=== PATIENT | female | born 1960 | race Caucasian/White ===

== ENCOUNTER 2023-01-14 14:18 | Emergency (ER) | payer BC, SELFPAY ==
[2023-01-14 14:23] VITALS: BP 130/80; PULSE 78; RESP 18; TEMP 36.6; O2SAT 98; BMI 38.7
--- NOTE | 2023-01-14 15:00 | XR_ITS ---
The [address] [address] Patient Name: KEVIN SANDY MRN: [id number] date: 1960 Sex: F Assigned Patient Location: ER Current Patient Location: ER Accession/Order Number: [id number] Exam Date: 01/14/2023 15:45 Report Date: 01/14/2023 16:18 At the request of: STACEY WEISS Procedure: XR lumbar spine min 4V XR lumbar spine min 4V, 01/14/2023 3:45 PM EDT, [facility]001 INDICATION: pain s/p fall COMPARISON: None TECHNIQUE: 4 images are submitted, including bilateral oblique views. FINDINGS: There is mild levocurvature. There is slight anterolisthesis of L3 on L4 and L4 on L5. There is a mild compression fracture along the anterior aspect of the superior endplate of L1 which appears recent. There is no evidence of retropulsion or canal stenosis. There is moderate disc space narrowing and cortical sclerosis and endplate osteophyte formation at T11-T12. The oblique views demonstrate no evidence of spondylolysis. There is sclerosis of facet joints at L3-L4 and L4-L5. There is moderate desiccation without evidence of aneurysm. XR/XR lumbar spine min 4V IMPRESSION: There is a mild anterior compression fracture of the superior endplate of L1 which appears recent. No significant retropulsion or canal stenosis is seen. Multilevel degenerative changes. Electronically authenticated by: ROYAL HENRY Date: 01/14/2023 16:18
--- NOTE | 2023-01-14 15:03 | ED_ITS ---
Documented by User: BERNARDA Ortiz 01/14/23 16:41 HPI - Back Pain/Injury General Chief Complaint: Fall Stated Complaint: FALL, BACK INJURY Time Seen by Provider: 01/14/23 14:52 Source: patient Mode of arrival: Wheelchair Limitations: no limitations History of Present Illness HPI Narrative: patient is a 62-year-old female presents to the Emergency Room with concerns of lower back pain. Patient notes pain is moderate localized to the lower lumbar back worse with twisting and bending. Patient states one week ago she was walking, tripped and landed chest 1st into a wall and then twisted before being on the ground.she denies hitting her heaad or neck. States sshe had immediate onset pain but thought it would get better over time. She denies any bowel or bladder continence or saddle paresthesias. She denies any anterior abdominal pain. She denies any radiation of pain into her lower legs. Patient denies any chest pain or shortness of breath. She has taken Tylenol infrequently with minimal improvement. MD elicited complaint: Reports back pain, back injury and fall Onset (ago): week(s) (1) Timing: Reports constant Severity: moderate Quality: Reports aching and spasming Location: Reports lumbar spine Radiation: Reports none Exacerbating factors: Reports movement Relieving factors: Reports none Context: turning/twisting and fall Related Data Previous Rx's Medication Instructions Recorded hydrocodone 5 mg-acetaminophen 325 1 tab PO Q6H PRN pain 4 days #16 01/14/23 mg tablet tabs ibuprofen 600 mg tablet 600 mg PO TID PRN pain #30 tabs 01/14/23 tizanidine 4 mg capsule (Zanaflex) 4 mg PO TID PRN muscle spasticity 01/14/23 5 days #15 caps Allergies Allergy/AdvReac Type Severity Reaction Status Date / Time Penicillins Allergy Intermediate Verified 01/14/23 14:27 Review of Systems ROS Constitutional Denies: fever, chills or change in weight Eyes Denies: change in vision Ears, nose, mouth, and throat Denies: throat pain Cardiovascular Denies: chest pain Respiratory Denies: shortness of breath Gastrointestinal Denies: abdominal pain, nausea or vomiting Genitourinary Denies: painful urination Musculoskeletal Reports: back pain; Denies: neck pain Integumentary/Breast Denies: rash Neurological Denies: headache Psychiatric Denies: anxiety Hematologic/Lymphatic Denies: easy bruising Allergic/Immunologic Denies: hives Exam Narrative Exam Narrative: Vital Signs reviewed and nurse's notes reviewed. The patient is not hypoxic. General: Alert, no acute distress, patient resting comfortably Skin: warm, intact, no pallor noted, no rash Head: Normocephalic, atraumatic Eye: Normal conjunctiva, EOMI Respiratory: No acute distress Abdomen: Normal bowel sounds, soft, nontender, no masses detected. No rebound, guarding, or rigidity noted. No midline pulsatile mass. Back: inspection of the back shows no obvious deformity, no swelling, no ecchymosis, contusion, abrasion, swelling, erythema, fluctuance or induration. No step offs or crepitus noted. No CVA tenderness noted bilaterally. Tenderness noted to paravertebral lower lumbar. minimal soreness to the mi dline. No thoracic back pain and no sacral pain noted. Straight leg raise on left is negative . Straight leg raise on right is negative. Musculoskeletal: No deformity noted to bilateral lower extremities. no cyanosis or mottling noted. normal pulses at DP and PT 2+ bilaterally and symmetrically. Normal 5/5 strength at ankles with dorsiflexion and plantar flexion. Patient is able to ambulate. Normal sensation noted to the bilateral lower extremities. Neurological: alert and oriented x4, normal sensory and motor observed. DTR 2+ at patellar and achilles bilaterally. Psychiatric: Cooperative Constitutional Vital Signs, click to edit/add: Last Vital Signs Temp 97.8 F 01/14/23 14:23 Pulse 78 01/14/23 14:23 Resp 18 01/14/23 14:23 BP 130/80 01/14/23 14:23 Pulse Ox 98 01/14/23 14:23 O2 Del Method Room Air 01/14/23 14:23 Course Vital Signs Vital signs: Vital Signs Temperature 97.8 F 01/14/23 14:23 Pulse Rate 78 01/14/23 14:23 Respiratory Rate 18 01/14/23 14:23 Blood Pressure 130/80 01/14/23 14:23 Pulse Oximetry 98 01/14/23 14:23 Oxygen Delivery Method Room Air 01/14/23 14:23 Temperature 97.8 F 01/14/23 14:23 Pulse Rate 78 01/14/23 14:23 Respiratory Rate 18 01/14/23 14:23 Blood Pressure 130/80 01/14/23 14:23 Pulse Oximetry 98 01/14/23 14:23 Oxygen Delivery Method Room Air 01/14/23 14:23 MDM - Back Pain/Injury MDM Narrative Medical decision making narrative: The patient was noted to be grossly neurologically intact. The patient was treated with adequate analgesia here in the emergency department. patient is diabetic and we will avoid prednisone.The patient vital signs were reviewed in the patient had no neurologic deficit noted.given patient's fall, x-rays were performed of the lumbar spine discussed at bedside possible L1 compressions fx. .. The patient is to followup in the next 3-5 days with orthopedics for repeat evaluation or to return to the emergency department if symptoms worsen or new symptoms develop. The patient will be discharged home with adequate analgesia. The patient has no other questions or concerns at this time.recommended no heavy lifting bending twisting or stooping. Imaging Data Chest x-ray: Radiologist's impression: Procedure: XR lumbar spine min 4V XR lumbar spine min 4V, 01/14/2023 3:45 PM EDT, [facility]001 INDICATION: pain s/p fall COMPARISON: None TECHNIQUE: 4 images are submitted, including bilateral oblique views. FINDINGS: There is mild levocurvature. There is slight anterolisthesis of L3 on L4 and L4 on L5. There is a mild compression fracture along the anterior aspect of the superior endplate of L1 which appears recent. There is no evidence of retropulsion or canal stenosis. There is moderate disc space narrowing and cortical sclerosis and endplate osteophyte formation at T11-T12. The oblique views demonstrate no evidence of spondylolysis. There is sclerosis of facet joints at L3-L4 and L4-L5. There is moderate desiccation without evidence of aneurysm. IMPRESSION: There is a mild anterior compression fracture of the superior endplate of L1 which appears recent. No significant retropulsion or canal stenosis is seen. Multilevel degenerative changes. Electronically authenticated by: ROYAL HENRY Date: 01/14/2023 16:18 Discharge Plan Discharge Chief Complaint: Fall Clinical Impression: Low back pain, Closed compression fracture of L1 vertebra Patient Disposition: Home, Self-Care Time of Disposition Decision: 16:34 Condition: Good Prescriptions / Home Meds: New ibuprofen 600 mg tablet 600 mg PO TID PRN (Reason: pain) Qty: 30 0RF tizanidine [Zanaflex] 4 mg capsule 4 mg PO TID PRN (Reason: muscle spasticity) 5 Days Qty: 15 0RF hydrocodone-acetaminophen 5-325 mg tablet 1 tab PO Q6H PRN (Reason: pain) 4 Days Qty: 16 0RF Instructions: Vertebral Compression Fracture (ED), Acute Low Back Pain (ED) Stand Alone Forms: Portal Instructions Referrals: Physician,Non-Staff, [Primary Care Provider] - 1 week Bruce Fan MD [Physician] - As soon as possible Discharge Date/Time: 01/14/23 16:45 Documented by User: Hodan Nolasco MD 01/14/23 17:47 HPI - Back Pain/Injury General Chief Complaint: Fall Stated Complaint: FALL, BACK INJURY Time Seen by Provider: 01/14/23 14:52 Related Data Previous Rx's Medication Instructions Recorded hydrocodone 5 mg-acetaminophen 325 1 tab PO Q6H PRN pain 4 days #16 01/14/23 mg tablet tabs ibuprofen 600 mg tablet 600 mg PO TID PRN pain #30 tabs 01/14/23 tizanidine 4 mg capsule (Zanaflex) 4 mg PO TID PRN muscle spasticity 01/14/23 5 days #15 caps Allergies Allergy/AdvReac Type Severity Reaction Status Date / Time Penicillins Allergy Intermediate Verified 01/14/23 14:27 Exam Constitutional Vital Signs, click to edit/add: Last Vital Signs Temp 97.8 F 01/14/23 14:23 Pulse 78 01/14/23 14:23 Resp 18 01/14/23 14:23 BP 130/80 01/14/23 14:23 Pulse Ox 98 01/14/23 14:23 O2 Del Method Room Air 01/14/23 14:23 Course Vital Signs Vital signs: Vital Signs Temperature 97.8 F 01/14/23 14:23 Pulse Rate 78 01/14/23 14:23 Respiratory Rate 18 01/14/23 14:23 Blood Pressure 130/80 01/14/23 14:23 Pulse Oximetry 98 01/14/23 14:23 Oxygen Delivery Method Room Air 01/14/23 14:23 Temperature 97.8 F 01/14/23 14:23 Pulse Rate 78 01/14/23 14:23 Respiratory Rate 18 01/14/23 14:23 Blood Pressure 130/80 01/14/23 14:23 Pulse Oximetry 98 01/14/23 14:23 Oxygen Delivery Method Room Air 01/14/23 14:23 MDM - Back Pain/Injury MDM Narrative Medical decision making narrative: The patient was noted to be grossly neurologically intact. The patient was treated with adequate analgesia here in the emergency department. patient is diabetic and we will avoid prednisone.The patient vital signs were reviewed in the patient had no neurologic deficit noted.given patient's fall, x-rays were performed of the lumbar spine discussed at bedside possible L1 compressions fx. .. The patient is to followup in the next 3-5 days with orthopedics for repeat evaluation or to return to the emergency department if symptoms worsen or new symptoms develop. The patient will be discharged home with adequate analgesia. The patient has no other questions or concerns at this time.recommended no heavy lifting bending twisting or stooping. Attending physician attestation I have reviewed the mid-level documentation, agree with the documentation, medical decision making and treatment plan as outlined by the mid-level provider. Discharge Plan Discharge Chief Complaint: Fall Clinical Impression: Low back pain, Closed compression fracture of L1 vertebra Patient Disposition: Home, Self-Care Time of Disposition Decision: 16:34 Condition: Good Prescriptions / Home Meds: New ibuprofen 600 mg tablet 600 mg PO TID PRN (Reason: pain) Qty: 30 0RF tizanidine [Zanaflex] 4 mg capsule 4 mg PO TID PRN (Reason: muscle spasticity) 5 Days Qty: 15 0RF hydrocodone-acetaminophen 5-325 mg tablet 1 tab PO Q6H PRN (Reason: pain) 4 Days Qty: 16 0RF Instructions: Vertebral Compression Fracture (ED), Acute Low Back Pain (ED) Stand Alone Forms: Portal Instructions Referrals: Physician,Non-Staff, MD [Primary Care Provider] - 1 week Bruce Fan MD [Physician] - As soon as possible Discharge Date/Time: 01/14/23 16:45
[2023-01-14] MEDS: KETOROLAC TROMETHAMINE 60 MG/2 ML VIAL IM (15:07)
[2023-01-14] MEDS: ORPHENADRINE 60 MG/ 2 ML VIAL IM (15:08)
== END 2023-01-14 16:45 | disposition home or self-care (01) ==
PROVIDERS: Emergency Provider Emergency Medicine
DX: S32.010A Wedge compression fracture of first lumbar vertebra, initial encounter for closed fracture (principal); M54.50 Low back pain, unspecified; W01.198A Fall on same level from slipping, tripping and stumbling with subsequent striking against other object, initial encounter
CPT/HCPCS: 72110; 96372; 99284